=== PATIENT | female | born 1995 | race African-American/Black ===

== ENCOUNTER 2025-05-12 15:08 | Outpatient (CLI) | payer MEDICAID, SELFPAY ==
[2025-05-12 17:37] LABS: Hematocrit 36.5 % (37.0-47.0); Hemoglobin 12.8 g/dL (12.0-15.0); Mean Corpuscular HGB Conc 35.1 g/dl (32-36); Mean Corpuscular Hemoglobin 29.3 pg (26-34); Mean Corpuscular Volume 83.5 fl (80-100); Platelet Count Result 210 k/mm3 (150-375); Red Blood Count 4.37 M/mm3 (4.2-5.4); White Blood Count 9.0 K/mm3 (4.5-10.0)
[2025-05-12 17:45] LABS: Glucose 1 Hour PP 50gm Dose 112 mg/dL
[2025-05-12 18:10] LABS: Syphilis IgG/IgM Antibody Non-Reactive (Nonreactive)
[2025-05-12 18:13] LABS: Hepatitis B Surface Antigen Negative (Negative)
[2025-05-12 18:22] LABS: HIV 1/2 Ab P24 Ag Result Negative (Negative)
[2025-05-12 18:43] LABS: Beta HCG Quantitative > 15000.00 mIU/ML
[2025-05-14 06:07] LABS: Cytomegalovirus (CMV) Ab, IgG >10.00 U/mL (0.00-0.59); Cytomegalovirus (CMV) Ab, IgM <30.0 AU/mL (0.0-29.9)
[2025-05-16 15:09] LABS: Varicella-Zoster Ab, IgG Reactive (Non Reactive); Varicella-Zoster Ab, IgM <0.91 index (0.00-0.90)
[2025-05-18 15:09] LABS: Parvovirus B19, IgG 2.1 index (0.0-0.8); Parvovirus B19, IgM 0.4 index (0.0-0.8)
== END 2025-05-12 15:09 | disposition home or self-care (01) ==
PROVIDERS: PCP Student in an Organized Health Care Education/Training Program; Visit Provider Student in an Organized Health Care Education/Training Program
DX: N91.2 Amenorrhea, unspecified (principal)
CPT/HCPCS: 36415; 82947; 84702; 85027; 85660; 86593; 86644; 86645; 86703; 86747; 86762; 86787; 86850; 87086; 87340; G0432

== ENCOUNTER 2025-06-15 14:16 | Emergency (ER) | payer MEDICAID, SELFPAY ==
[2025-06-15 14:19] VITALS: BP 146/75; PULSE 103; RESP 16; TEMP 37; O2SAT 100
--- OUTSIDE RECORDS SUMMARY | 2025-06-15 14:19 | XMS_ITS | Clinical Summary ---
Author Organization [facility] Address [address] [place] [address] Care Team Providers Care Digital Marketing Apprentice Name Role Phone Unavailable Primary Care Provider Unavailabl e Source Comments [facility],non-owned Affiliates and Associated Physician Practices is amultiple site organization consisting of ambulatory clinics and hospital sitesin [place], [place], [place] and [place]. This disclosure is being madepursuant to the Care Everywhere program and may not contain all information available regarding this patient. Last updated 18.[facility] Health Encounters Date Type Department Care Team Description 06/07/2025 Telephone [facility] [address] [place] [phone] Inés Bacon RN Referral (Attempted to call patient 3 times and messages left to schedule as requested by Dr. Johnson's office. No reply from patient. Dr. Johnson's office notified. ) from Last 3 Months Social History Tobacco Use Types Packs/Day Years Used Date Smoking Tobacco: Never Assessed Comments Yes Sex and Gender Information Value Date Recorded Sex Assigned at Not on file Legal Sex Female 2:15 PM CDT Gender Identity Not on file Sexual Orientation Not on file Plan of Treatment Upcoming Encounters Date Type Department Care Team (Late st Contact Info) Description 07/13/2025 9:00 AM CDT Appointment [facility] [address] [place] [phone] 07/13/2025 9:45 AM CDT Appointment [facility] [address] [place] [phone] Health Maintenance Due Date Last Done Comments HIV SCREENING 2009 HEPATITIS C SCREENING 06/06/2012 DTAP/TDAP/TD VACCINES (1 - Tdap) 2013 HEPATITIS B VACCINE (1 of 3 - 19+ 3-dose series) 2013 PAP SMEAR 2015 HPV VACCINE (1 - 3-dose SCDM series) 2021 COVID-19 VACCINE ( - 2023-2 5 season) 2024 DEPRESSION SCREENING 10/20/2024 INFLUENZA VACCINE (#1) 2025 ZOSTER VACCINE (1 of 2) 2044 Respiratory Syncytial Virus (RSV) Vaccine Pt: or over 60 yrs (1 - 1-dose 75+ series) 2069 HIB VACCINE Aged Out No longer eligi ble based on patient's age to complete this topic MENINGOCOCCAL (Group B) VACC INE SHARED DECISION-MAKING Aged Out No longer eligibl e based on patient's age to complete this topic MENINGOCOCCAL GROUPS A/C/Y/W VACCINE Aged Out No longer eligible b ased on patient's age to complete this topic PNEUMOCOCCAL VACCINE Aged Out No long er eligible based on patient's age to complete this topic
--- OUTSIDE RECORDS SUMMARY | 2025-06-15 16:38 | XMS_ITS | Clinical Summary ---
Author Organization [facility] Address [address] [place] [address] Care Team Providers Care Demographic Analyst Name Role Phone Unavailable Primary Care Provider Unavailabl e Source Comments [facility],non-owned Affiliates and Associated Physician Practices is amultiple site organization consisting of ambulatory clinics and hospital sitesin [place], [place], [place] and [place]. This disclosure is being madepursuant to the Care Everywhere program and may not contain all information available regarding this patient. Last updated 18.[facility] Health Encounters Date Type Department Care Team Description 06/07/2025 Telephone [facility] [address] [place] [phone] Inés Bacon RN Referral (Attempted to call [...] Info) Description 07/13/2025 9:00 AM CDT Appointment [facility] [address] [place] [phone] 07/13/2025 9:45 AM CDT Appointment [facility] [address] [place] [phone] Health Maintenance Due Date Last Done Comments [...]
--- NOTE | 2025-06-15 17:02 | PC.NURSE ---
Dr. Jose at bedside assessing pt.
--- NOTE | 2025-06-15 17:06 | ED_ITS ---
HPI - General Adult General Chief complaint: Abdominal Pain Stated complaint: 18 weeks preg, abd pain Time Seen by Provider: 06/15/25 16:06 History of Present Illness HPI narrative: This is a 30-year-old female presenting with belly button pain. She is currently 18 weeks . She noticed a small lump in her believe on last night that was painful. He is on associated with nausea vomiting. It is not associated with vaginal bleeding or discharge. Related Data Home Medications ?Medication ?Instructions ?Recorded ?Confirmed ?Last Taken ?Type vits no.126-ferrous fum tablet PO 05/12/25 Unknown History 28 mg iron-folic acid 800 mcg tablet (Classic ) Allergies Allergy/AdvReac Type Severity Reaction Status Date / Time No Known Allergies Allergy Verified 06/15/25 14:21 [facility] Surgical History Surgical History History of delivery Social History Social History Smoking status: Never smoker Alcohol intake: never Substance use: never Substance use type: does not use Do You Feel Safe in your Home?: Yes Lack of Transportation: No Lack of Food: Never True Current Housing: I Have Housing Concerned About Future Housing: No Difficulty Paying Gas/Electric Bills: No Difficulty Paying for Meds: No Currently Unemployed: No Education: Bachelor's Degree Difficulty w/ Childcare or Family Care: No Living arrangements: with family Occupation/Education: unemployed Gender identity (if verbalized by the patient): Female Sexual Orientation (if Verbalized by the Patient): Straight or Heterosexual Exam Narrative: APPEARANCE: No apparent distress. Head: atraumatic. EYES: EOMI, NOSE: Atraumatic NECK: Trachea midline RESPIRATORY: No increased rate of breathing clear to auscultation CARDIOVASCULAR: RRR, ABDOMINAL: Nontender Gravid uterus, easily reducible umbilical hernia no overlying skin changes MUSCULOSKELETAl: No obvious deformities NEURO: Alert. Moving 4/4 extremities SKIN:: Warm, dry. Normal color PSYCHIATRIC: Normal affect Course Vital Signs Vital signs: Vital Signs Temperature 98.6 F 06/15/25 14:19 Pulse Rate 103 H 06/15/25 14:19 Respiratory Rate 16 06/15/25 14:19 Blood Pressure 146/75 H 06/15/25 14:19 Pulse Oximetry 100 08/27/25 14:19 Temperature 98.6 F 06/15/25 14:19 Pulse Rate 103 H 06/15/25 14:19 Respiratory Rate 16 06/15/25 14:19 Blood Pressure 146/75 H 06/15/25 14:19 Pulse Oximetry 100 06/15/25 14:19 Medical Decision Making MDM Narrative Medical decision making narrative: -Course: 30-year-old female presenting with umbilical pain. On exam she had an easily reducible umbilical hernia. After reduction her pain is completely resolved. Not have any support team assoc complaints today and has normal heart to kayode. She will be given General surgery follow-up and return precautions if she develops incarcerated umbilical hernia. -DDX includes but is not limited to: Round ligament pain,hernia pain, miscarri age Vital Signs Vital Signs: Vital Signs Temperature 98.6 F 06/15/25 14:19 Pulse Rate 103 H 06/15/25 14:19 Respiratory Rate 16 06/15/25 14:19 Blood Pressure 146/75 H 06/15/25 14:19 Pulse Oximetry 100 06/15/25 14:19 Temperature 98.6 F 06/15/25 14:19 Pulse Rate 103 H 06/15/25 14:19 Respiratory Rate 16 06/15/25 14:19 Blood Pressure 146/75 H 06/15/25 14:19 Pulse Oximetry 100 06/15/25 14:19 Discharge Plan Discharge Clinical Impression: Hernia, umbilical Patient Disposition: Home Condition: Stable Instructions: Antibiotic Form, Umbilical Hernia (ED) Additional Instructions: You were seen for pain in your belly button. You have an umbilical hernia. If this pain becomes constant, you develop a large bulge or any skin changes please return to the ED for re-evaluation. You can use Tylenol as needed for pain. Patient Language: Samoan Prescriptions: No Action Classic 28 mg iron- 800 mcg tablet PO Follow-up/Referrals: Luc Johnson MD [Primary Care Provider, VOCATIONAL REHABILITATION TECHNICIAN] - 3 Days Referral Note: Umbilical pain Coy Roche MD [Physician, General Surgery] - 1 Week Referral Note: Umbilical hernia pain
[2025-06-15 17:23] VITALS: BP 129/84; PULSE 85; RESP 16; O2SAT 100
== END 2025-06-15 17:25 | disposition home or self-care (01) ==
PROVIDERS: Emergency Provider Emergency Medicine; PCP Student in an Organized Health Care Education/Training Program
DX: O99.612 Diseases of the digestive system complicating pregnancy, second trimester (principal); K42.9 Umbilical hernia without obstruction or gangrene; Z3A.18 18 weeks gestation of pregnancy
CPT/HCPCS: 99282